=== PATIENT | female | born 1990 | race Caucasian/White ===

== ENCOUNTER 2018-10-18 14:58 | Emergency (ER) | payer OTHER ==
[~2018-10-18] VITALS: Ht 167.6 cm; Wt 64.8 kg
[~2018-10-18 14:58] MED LIST: DOCU-131 PO; IBUP-1222 PO; OXYC-302 PO; PNV1TABL11 PO
[2018-10-18 15:03] VITALS: BP 148/73
[2018-10-18 15:34] LABS: BASOPHILS # (AUTO) 0.04 x10^3/uL (0-0.1); BASOPHILS % (AUTO) 0 % (0-1); EOSINOPHILS # (AUTO) 0.05 x10^3/uL (0-0.4); EOSINOPHILS % (AUTO) 0 % (1-7); LYMPHOCYTES # (AUTO) 2.93 x10^3/uL (1-3.4); LYMPHOCYTES % (AUTO) 22 % (22-44); MD NO; MEAN CORPUSCULAR HEMOGLOBIN 31.1 pg (27.0-34.8); MEAN CORPUSCULAR HGB CONC 32.9 g/dL (32.4-35.8); MEAN CORPUSCULAR VOLUME 94.5 fL (80-100); MEAN PLATELET VOLUME 7.8 fL (7.4-10.4); MONOCYTES # (AUTO) 0.64 x10^3/uL (0.2-0.8); MONOCYTES % (AUTO) 5 % (2-9); NEUTROPHILS % (AUTO) 73 % (42-75); PLATELET COUNT 280 x10^3/uL (130-400); RED BLOOD COUNT 4.62 x10^6/uL (3.82-5.3); RED CELL DISTRIBUTION WIDTH 13.8 % (9.6-15.2)
[2018-10-18 15:42] LABS: ALBUMIN 4.7 g/dL (3.4-5.0); ANION GAP 8 mmol/L (5-15); CALCIUM 9.7 mg/dL (8.5-10.1); CHLORIDE 105 mmol/L (98-107); CREATININE 0.96 mg/dL (0.55-1.02)
== END 2018-10-18 16:39 | disposition home or self-care (01) ==
LOC: ED 16:30
DX: M54.2 Cervicalgia (principal); M54.6 Pain in thoracic spine; Z86.718 Personal history of other venous thrombosis and embolism
CPT/HCPCS: 36415; 71045; 80048; 82040; 82550; 85025; 85379; 93005; 99285

== ENCOUNTER 2018-11-04 22:40 | Inpatient (IN) | payer OTHER ==
[~2018-11-04] VITALS: Ht 162.6 cm; Wt 58.0 kg
[2018-11-05 00:28] LABS: BASOPHILS # (AUTO) 0.04 x10^3/uL (0-0.1); BASOPHILS % (AUTO) 0 % (0-1); EOSINOPHILS # (AUTO) 0.06 x10^3/uL (0-0.4); EOSINOPHILS % (AUTO) 1 % (1-7); LYMPHOCYTES # (AUTO) 3.49 x10^3/uL (1-3.4); LYMPHOCYTES % (AUTO) 36 % (22-44); MD NO; MEAN CORPUSCULAR HEMOGLOBIN 31.5 pg (27.0-34.8); MEAN CORPUSCULAR HGB CONC 33.3 g/dL (32.4-35.8); MEAN CORPUSCULAR VOLUME 94.4 fL (80-100); MEAN PLATELET VOLUME 7.5 fL (7.4-10.4); MONOCYTES # (AUTO) 0.43 x10^3/uL (0.2-0.8); MONOCYTES % (AUTO) 5 % (2-9); NEUTROPHILS # (AUTO) 5.62 x10^3/uL (1.8-6.8); NEUTROPHILS % (AUTO) 58 % (42-75); PLATELET COUNT 321 x10^3/uL (130-400); RED BLOOD COUNT 4.77 x10^6/uL (3.82-5.3); RED CELL DISTRIBUTION WIDTH 13.8 % (9.6-15.2)
[2018-11-05 00:40] LABS: ALANINE AMINOTRANSFERASE 32 U/L (12-78); ALBUMIN 4.5 g/dL (3.4-5.0); ANION GAP 9 mmol/L (5-15); CALCIUM 8.7 mg/dL (8.5-10.1); CHLORIDE 112 mmol/L (98-107); CREATININE 1.11 mg/dL (0.55-1.02)
[2018-11-05 00:45] LABS: ALKALINE PHOSPHATASE 57 U/L (45-117); BILIRUBIN,TOTAL 0.4 mg/dL (0.2-1.0); TOTAL PROTEIN 8.4 g/dL (6.4-8.2)
[2018-11-05 00:47] LABS: SALICYLATE LEVEL < 1.7 mg/dL (2.8-20.0)
[2018-11-05 00:48] LABS: ACETAMINOPHEN 177 mcg/mL (10-30)
[2018-11-05] MEDS ORDERED: ACETYLCYSTEINE IV ONE ×3 (01:00→06:37)
[2018-11-05] MEDS ORDERED: DEXTROSE 5% IV ONE ×3 (01:00→06:37)
[2018-11-05] MEDS ORDERED: ONDANSETRON 2MG/ML, 2ML IVPush ONE (01:30)
[2018-11-05] MEDS ORDERED: SODIUM CHLORIDE 0.9% 1,000ML IVBOLUS ONE (01:30)
[2018-11-05] MEDS ORDERED: SODIUM CHLORIDE FLUSH 10ML SYR IVF ONE (01:30)
[2018-11-05] MEDS ORDERED: hydrALAzine 20 MG/ML, 1ML IVPush PRN (02:00)
[2018-11-05] MEDS ORDERED: DOCUSATE 100 MG CAPSULE PO PRN (02:00)
[2018-11-05 02:31] LABS: INTERNATIONAL NORMALIZED RATIO 0.95 (0.93-1.1); PROTHROMBIN TIME 10.1 Seconds (9.6-11.5)
[2018-11-05] MEDS ORDERED: ONDANSETRON 2MG/ML, 2ML ONE (02:34)
[2018-11-05 03:16] LABS: FREE T4 (FREE THYROXINE) 1.2 ng/dL (0.76-1.46); THYROID STIMULATING HORMONE 2.34 mIU/L (0.358-3.740)
[2018-11-05 03:24] LABS: HEMOGLOBIN A1C 5.3 % (4.2-6.3)
[2018-11-05 03:40] LABS: MICROSCOPIC NOT IND
[2018-11-05 03:43] LABS: CULTURE INDICATED? NO
[2018-11-05 03:50] VITALS: BP 116/79
[2018-11-05 03:52] LABS: AMPHETAMINE SCREEN, URINE Negative (Negative); BARBITURATE SCREEN, URINE Negative (Negative); BENZODIAZEPINE SCREEN, URINE Negative (Negative); CANNABINOID SCREEN, URINE Positive (Negative); COCAINE SCREEN, URINE Negative (Negative); METHADONE SCREEN, URINE Negative (Negative); OPIATE SCREEN, URINE Negative (Negative)
[2018-11-05 05:44] LABS: BASOPHILS # (AUTO) 0.04 x10^3/uL (0-0.1); BASOPHILS % (AUTO) 1 % (0-1); EOSINOPHILS % (AUTO) 0 % (1-7); LYMPHOCYTES # (AUTO) 1.77 x10^3/uL (1-3.4); LYMPHOCYTES % (AUTO) 28 % (22-44); MD NO; MEAN CORPUSCULAR HEMOGLOBIN 32.3 pg (27.0-34.8); MEAN PLATELET VOLUME 7.4 fL (7.4-10.4); MONOCYTES # (AUTO) 0.42 x10^3/uL (0.2-0.8); MONOCYTES % (AUTO) 7 % (2-9); NEUTROPHILS # (AUTO) 4.16 x10^3/uL (1.8-6.8); NEUTROPHILS % (AUTO) 65 % (42-75); PLATELET COUNT 283 x10^3/uL (130-400); RED BLOOD COUNT 4.37 x10^6/uL (3.82-5.3)
[2018-11-05 05:49] LABS: ALANINE AMINOTRANSFERASE 38 U/L (12-78); ALBUMIN 3.9 g/dL (3.4-5.0); ANION GAP 11 mmol/L (5-15); CHLORIDE 114 mmol/L (98-107); CREATININE 0.85 mg/dL (0.55-1.02)
[2018-11-05 05:51] LABS: ALKALINE PHOSPHATASE 51 U/L (45-117); BILIRUBIN,TOTAL 0.5 mg/dL (0.2-1.0); TOTAL PROTEIN 7.3 g/dL (6.4-8.2); TRIGLYCERIDES 44 mg/dL (50-200); VLDL CHOLESTEROL 9 mg/dL (0-25)
[2018-11-05 05:52] LABS: CHOL/HDL RATIO 2.3; CHOLESTEROL, TOTAL 147 mg/dL (140-239); HDL CHOL % 44 % (28-40); HDL CHOLESTEROL (DIRECT) 65 mg/dL (40-60); LDL CHOLESTEROL,CALCULATED 73 mg/dL (54-169); LDL/HDL RATIO 1.1 (0.5-3.0)
[2018-11-05 06:41] VITALS: BP 108/74
[2018-11-05] MEDS: SODIUM CHLORIDE 0.9% 1,000 ML IV SCH ×3 (07:17→13:47)
[2018-11-05 11:12] LABS: ALBUMIN 4.1 g/dL (3.4-5.0); ANION GAP 10 mmol/L (5-15); CALCIUM 8.2 mg/dL (8.5-10.1); CHLORIDE 110 mmol/L (98-107)
[2018-11-05 11:16] LABS: ALANINE AMINOTRANSFERASE 33 U/L (12-78); ALKALINE PHOSPHATASE 52 U/L (45-117); BILIRUBIN,TOTAL 0.8 mg/dL (0.2-1.0); CREATININE 0.85 mg/dL (0.55-1.02); TOTAL PROTEIN 7.5 g/dL (6.4-8.2)
[2018-11-05 12:44] VITALS: BP 120/78
[2018-11-05 17:18] LABS: ALBUMIN 3.8 g/dL (3.4-5.0); ANION GAP 8 mmol/L (5-15); CALCIUM 8.4 mg/dL (8.5-10.1); CHLORIDE 111 mmol/L (98-107)
[2018-11-05 17:23] LABS: ALANINE AMINOTRANSFERASE 29 U/L (12-78); ALKALINE PHOSPHATASE 48 U/L (45-117); CREATININE 0.97 mg/dL (0.55-1.02); TOTAL PROTEIN 6.9 g/dL (6.4-8.2)
[2018-11-05 19:16] VITALS: BP 131/85
[2018-11-05 23:32] LABS: ALANINE AMINOTRANSFERASE 29 U/L (12-78); ALBUMIN 3.8 g/dL (3.4-5.0); ANION GAP 11 mmol/L (5-15); CHLORIDE 109 mmol/L (98-107)
[2018-11-05 23:34] LABS: ALKALINE PHOSPHATASE 51 U/L (45-117); BILIRUBIN,TOTAL 0.7 mg/dL (0.2-1.0)
[2018-11-06] MEDS: SODIUM CHLORIDE 0.9% 1,000 ML IV SCH (00:16)
[2018-11-06 02:00] VITALS: BP 117/73
[2018-11-06 05:18] LABS: ALBUMIN 3.5 g/dL (3.4-5.0); ANION GAP 5 mmol/L (5-15); CALCIUM 8.2 mg/dL (8.5-10.1); CHLORIDE 111 mmol/L (98-107)
[2018-11-06 05:22] LABS: ALANINE AMINOTRANSFERASE 26 U/L (12-78); ALKALINE PHOSPHATASE 44 U/L (45-117); BILIRUBIN,TOTAL 0.6 mg/dL (0.2-1.0); CREATININE 0.87 mg/dL (0.55-1.02); TOTAL PROTEIN 6.4 g/dL (6.4-8.2)
[2018-11-06 08:00] VITALS: BP 126/84
[2018-11-06 13:07] VITALS: BP 115/83
[2018-11-06 14:34] LABS: CALCIUM 8.9 mg/dL (8.5-10.1); CHLORIDE 110 mmol/L (98-107)
[2018-11-06 14:37] LABS: ANION GAP 6 mmol/L (5-15); CREATININE 0.92 mg/dL (0.55-1.02)
[2018-11-06] MEDS: BUTALB/APAP/CAFFEINE 50MG/325MG/40MG PO PRN ×2 (17:33→21:54)
[2018-11-06 19:59] VITALS: BP 119/84
[2018-11-07 01:28] VITALS: BP 111/70
[2018-11-07 08:00] VITALS: BP 139/77
[2018-11-07 12:44] VITALS: BP 116/73
[2018-11-07 17:20] VITALS: BP 157/89
[2018-11-07 19:43] VITALS: BP 126/84
[2018-11-07] MEDS: POLYETHYLENE GLYCOL 17 GM PACKET PO PRN (22:04)
[2018-11-07] MEDS: BUTALB/APAP/CAFFEINE 50MG/325MG/40MG PO PRN (23:55)
[2018-11-08 08:30] VITALS: BP 123/71
[2018-11-08 19:45] VITALS: BP 120/80
[2018-11-08] MEDS: BUTALB/APAP/CAFFEINE 50MG/325MG/40MG PO PRN (19:51)
[2018-11-09] MEDS: BUTALB/APAP/CAFFEINE 50MG/325MG/40MG PO PRN ×4 (00:17→23:13)
[2018-11-09 07:20] VITALS: BP 93/58
[2018-11-09 07:21] LABS: ALANINE AMINOTRANSFERASE 26 U/L (12-78); ALBUMIN 3.9 g/dL (3.4-5.0); ANION GAP 6 mmol/L (5-15); CALCIUM 8.8 mg/dL (8.5-10.1); CHLORIDE 107 mmol/L (98-107); CREATININE 0.93 mg/dL (0.55-1.02)
[2018-11-09 07:23] LABS: ALKALINE PHOSPHATASE 47 U/L (45-117); BILIRUBIN,TOTAL 0.6 mg/dL (0.2-1.0); TOTAL PROTEIN 7.3 g/dL (6.4-8.2)
[2018-11-09] MEDS: POLYETHYLENE GLYCOL 17 GM PACKET PO PRN (10:57)
[2018-11-09 19:28] VITALS: BP 127/80
[2018-11-10] MEDS: BUTALB/APAP/CAFFEINE 50MG/325MG/40MG PO PRN (04:05)
[2018-11-10 07:59] VITALS: BP 110/70
== END 2018-11-10 16:33 | disposition home or self-care (01) | DRG 917 ==
LOC: ED 23:21 → EDIP 11-05 01:55 → 4NOR 11-05 03:50 → 2N 11-07 16:42
PROVIDERS: ADMIT Internal Medicine; ATTEND Internal Medicine
DX: T39.1X2A Poisoning by 4-Aminophenol derivatives, intentional self-harm, initial encounter (principal); N17.0 Acute kidney failure with tubular necrosis; T51.92XA Toxic effect of unspecified alcohol, intentional self-harm, initial encounter; E87.6 Hypokalemia; F10.129 Alcohol abuse with intoxication, unspecified; F39 Unspecified mood [affective] disorder; F43.21 Adjustment disorder with depressed mood; F32.9 Major depressive disorder, single episode, unspecified; Z80.6 Family history of leukemia; Z86.718 Personal history of other venous thrombosis and embolism; Y92.89 Other specified places as the place of occurrence of the external cause; Z86.711 Personal history of pulmonary embolism; Z88.8 Allergy status to other drugs, medicaments and biological substances
CPT/HCPCS: 36415; 80048; 80053; 80061; 80307; 80329; 81003; 82550; 83036; 83735; 84439; 84443; 84703; 85025; 85610; 85730; 93005; 96365; 96375; 99291; G0378; J0132; J2405; J7060; J7070; G0480; J7030

== ENCOUNTER 2019-02-02 23:26 | Emergency (ER) | payer OTHER ==
[~2019-02-02] VITALS: Ht 167.6 cm; Wt 61.0 kg
[2019-02-02] MEDS ORDERED: KETOROLAC 30 MG/1 ML IV ONE (23:30)
[2019-02-02] MEDS ORDERED: MORPHINE SULFATE 4 MG/ML, 1ML IVPush PRN (23:30)
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
--- NOTE | 2019-02-02 23:43 | NUR ---
PT TO XRAY
[2019-02-02] MEDS ORDERED: MORPHINE SULFATE 4 MG/ML, 1ML ONE (23:55)
[2019-02-02] MEDS ORDERED: KETOROLAC 30 MG/1 ML ONE (23:55)
--- NOTE | 2019-02-03 00:02 | NUR ---
[facility] OFFICERS AT BEDSIDE
--- NOTE | 2019-02-03 00:02 | NUR ---
PT MEDICATED PER [facility]. 5 RIGHTS ADDRESSED.
[2019-02-03 00:23] VITALS: BP 123/78
--- NOTE | 2019-02-03 00:24 | NUR ---
PT LYING ON GURNEY, TALKING ON PHONE. STATES PAIN HAS DECREASED SIGNIFICANTLY SINCE PAIN MEDICATION ADMINISTRATION. ALL VITALS STABLE. PT TO BE DISCHARGED. WILL CONTINUE TO MONITOR.
--- NOTE | 2019-02-03 00:59 | NUR ---
TASK RN: PT ASSISTED TO DRESS. SPO2 >90% ON RA. SLING APPLIED. DC EDUCATION PROVIDED, PT DEMONSTRATES UNDERSTANDING. PT AMBULATED STEADILY TO DC WITH RN. PT ORDERED [facility] FOR TRANSPORT HOME.
== END 2019-02-03 01:02 | disposition home or self-care (01) ==
LOC: ED 23:59
DX: S43.102A Unspecified dislocation of left acromioclavicular joint, initial encounter (principal); S40.021A Contusion of right upper arm, initial encounter; S50.12XA Contusion of left forearm, initial encounter; S50.11XA Contusion of right forearm, initial encounter; S70.12XA Contusion of left thigh, initial encounter; S70.11XA Contusion of right thigh, initial encounter; S80.12XA Contusion of left lower leg, initial encounter; S80.11XA Contusion of right lower leg, initial encounter; S40.022A Contusion of left upper arm, initial encounter; Y04.8XXA Assault by other bodily force, initial encounter; Y93.89 Activity, other specified; Y92.89 Other specified places as the place of occurrence of the external cause; Y99.8 Other external cause status
CPT/HCPCS: 29240; 73030; 96374; 96375; 99283; J1885

== ENCOUNTER 2020-01-27 17:24 | Emergency (ER) | payer OTHER ==
[~2020-01-27] VITALS: Ht 167.6 cm; Wt 62.0 kg
--- NOTE | 2020-01-27 18:09 | NUR ---
PT TO ROOM FROM [facility].
--- NOTE | 2020-01-27 18:20 | NUR ---
THIS IS A 29 YO F W/ C/O HEMATOMA IN THE RIGHT UPPR ARM. PT REPORTS THAT SHE NOTICED IT TODAY AT WORK. SHE IS CONCERNED BECAUSE SHE HAS HX OF PE AND CLOTTING DISORDER MTHFR. DENIES CP/SOB. VS STABLE. PT RESTING ON GURNEY CONNECTED TO ALL MONITORING AWAITING ED PROVIDER EVAL. CALL LIGHT IN REACH. DENIES FURTHER NEEDS AT THIS TIME.
[2020-01-27 18:29] VITALS: BP 115/79
--- NOTE | 2020-01-27 18:55 | NUR ---
REPORT GIVEN TO RANDI ANN.
--- NOTE | 2020-01-27 19:03 | NUR ---
REPORT FROM SETH PRINCE.
--- NOTE | 2020-01-27 19:45 | NUR ---
SPOKE WITH US WHO STATES SOULD BE ABOUT 15 MORE MINUTES BEFORE PATIENT GETS US.
--- NOTE | 2020-01-27 21:12 | NUR ---
REPORT TO SETH DONALD.
== END 2020-01-27 21:37 | disposition home or self-care (01) ==
LOC: ED 21:00
DX: M79.601 Pain in right arm (principal); Z86.718 Personal history of other venous thrombosis and embolism
CPT/HCPCS: 93005; 99284

== ENCOUNTER 2020-03-14 14:58 | Emergency (ER) | payer OTHER ==
[~2020-03-14] VITALS: Ht 167.6 cm; Wt 61.6 kg
[2020-03-14] MEDS ORDERED: SODIUM CHLORIDE FLUSH 10ML SYR IVF ONE (15:30)
[2020-03-14] MEDS ORDERED: LORazepam 2 MG/ML, 1ML IVPush ONE (15:30)
[2020-03-14] MEDS ORDERED: KETOROLAC 30 MG/1 ML IVPush ONE (15:30)
[2020-03-14 15:47] LABS: BASOPHILS # (AUTO) 0.04 x10^3/uL (0-0.1); BASOPHILS % (AUTO) 0 % (0-1); EOSINOPHILS # (AUTO) 0.04 x10^3/uL (0-0.4); EOSINOPHILS % (AUTO) 0 % (1-7); LYMPHOCYTES # (AUTO) 1.96 x10^3/uL (1-3.4); LYMPHOCYTES % (AUTO) 20 % (22-44); MD NO; MEAN CORPUSCULAR HEMOGLOBIN 31.5 pg (27.0-34.8); MEAN CORPUSCULAR HGB CONC 33.7 g/dL (32.4-35.8); MEAN CORPUSCULAR VOLUME 93.6 fL (80-100); MEAN PLATELET VOLUME 7.3 fL (7.4-10.4); MONOCYTES % (AUTO) 7 % (2-9); NEUTROPHILS # (AUTO) 7.02 x10^3/uL (1.8-6.8); NEUTROPHILS % (AUTO) 72 % (42-75); PLATELET COUNT 276 x10^3/uL (130-400); RED BLOOD COUNT 4.89 x10^6/uL (3.82-5.3); RED CELL DISTRIBUTION WIDTH 15.1 % (9.6-15.2)
--- NOTE | 2020-03-14 15:52 | NUR ---
PT LAYING IN BED ON PHONE, RESPIRTIONS EVEN AND UNLABORED.
[2020-03-14 15:58] LABS: ALBUMIN 4.2 g/dL (3.4-5.0); ANION GAP 5 mmol/L (5-15); CALCIUM 9.5 mg/dL (8.5-10.1); CHLORIDE 108 mmol/L (98-107); CREATININE 0.96 mg/dL (0.55-1.02)
[2020-03-14 16:02] LABS: TROPONIN I < 0.015 ng/mL (0.000-0.045)
[2020-03-14] MEDS ORDERED: KETOROLAC 30 MG/1 ML ONE (16:03)
[2020-03-14] MEDS ORDERED: LORazepam 2 MG/ML, 1ML ONE (16:03)
[2020-03-14] MEDS ORDERED: SPIR25TA5 PO (16:16)
--- NOTE | 2020-03-14 16:39 | NUR ---
PT BACK FROM IMAGING, PT DENIES RELIEF FROM MEDICATION. SITTING IN BED, ON PHONE.
[2020-03-14] MEDS ORDERED: OMNIPAQUE 350 MG/ML, 100ML BOTTLE ONE (16:54)
[2020-03-14 17:28] VITALS: BP 114/76
== END 2020-03-14 17:48 | disposition home or self-care (01) ==
LOC: ED 15:52
DX: R07.89 Other chest pain (principal); I49.1 Atrial premature depolarization; Z86.711 Personal history of pulmonary embolism; Z86.718 Personal history of other venous thrombosis and embolism
CPT/HCPCS: 36415; 71275; 80048; 82040; 83880; 84484; 85025; 93005; 96374; 96375; 99285; J1885; J2060; Q9967